=== PATIENT | female | born 2000 | race Caucasian/White ===

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

== ENCOUNTER 2023-08-17 18:29 | Emergency (ER) | payer OTHER, SELFPAY ==
[2023-08-17 18:44] VITALS: BP 126/70; PULSE 93; RESP 16; TEMP 37.5; O2SAT 100
--- NOTE | 2023-08-17 19:34 | ED.GENADULT ---
HPI - General Adult General Chief complaint: Eye Problems Stated complaint: left eye red, swollen,light sensitivity Source: patient Mode of arrival: ambulatory Limitations: no limitations History of Present Illness HPI narrative: Patient presents for evaluation of left eye irritation since yesterday. She reports redness, swelling of the lids earlier, and photosensitivity. She denies any drainage from the left eye or visual disturbance. She wears contacts. She did remove them and has been wearing glasses instead. She is not diabetic. She denies other complaints. Related Data Allergies Allergy/AdvReac Type Severity Reaction Status Date / Time No Known Allergies Allergy Verified 08/17/23 18:36 Review of Systems Review of Systems: CONSTITUTIONAL: Denies fever, chills, or sweats. EYES: Reports redness to the left eye. reports swelling to the left eyelids earlier, now improved. Reports photosensitivity in left eye earlier, now resolved. Denies visual disturbance. Denies pain or pruritus of the eyes. ENT: Denies rhinorrhea, congestion, sore throat, or otalgia. CARDIOVASCULAR: Denies chest pain, palpitations, or edema. RESPIRATORY: Denies cough or dyspnea. GASTROINTESTINAL: Denies abdominal pain, nausea, vomiting, or diarrhea. GENITOURINARY: Denies dysuria or hematuria. SKIN: Denies rash or itching. MUSCULOSKELETAL: Denies back pain, joint pain, or myalgia. NEUROLOGIC: Denies headache, numbness, dizziness, or weakness. PSYCHIATRIC: Denies anxiety or depression. [facility] Past Medical History Medical History Asthma Irregular menses Screening for STD (sexually transmitted disease) Surgical History Surgical History History of placement of ear tubes Family History Family History Grandparent Diabetes mellitus Family history of blood dyscrasia Cerebrovascular accident Acute myocardial infarction Other , 17 Acute myocardial infarction Father High cholesterol Other Hypertension Social History Social History Smoking status: Never smoker Second hand tobacco smoke exposure: No Alcohol intake: never Substance use type: marijuana Exam Narrative: GENERAL: Well-appearing, well-nourished, and in no acute distress. HEAD: Normocephalic, atraumatic. EYES: PERRLA and EOMI. Left conjunctival injection. ENT: Nares clear, no rhinorrhea or epistaxis. Mucous membranes moist. Oropharynx without tonsillar hypertrophy exudate or other lesions. Bilateral TMs pearly aguayo nonbulging NECK: Supple. No adenopathy or masses. No carotid bruits or JVD CHEST: Clear to auscultation. No respiratory distress. No wheezes rales or rhonchi HEART: Regular rate and rhythm. No murmur heard. Normal peripheral pulses. ABDOMEN: Soft, nontender, nondistended, normal active bowel sounds. EXTREMITIES: Normal range of motion. No edema. SKIN: Warm, dry, no rash. NEURO: No focal deficits. Alert and oriented x3. PSYCH: Normal mood and affect. Course Course Emergency Course: This is a 23-year-old female who presented for evaluation of left eye redness and irritation. Exam is consistent with conjunctivitis. Will discharge with ofloxacin. Keep contacts out. Okay to were glasses. Follow-up with eye doctor and primary care provider. Go to the ER for worsening symptoms. Patient in agreement with plan of care. Level of Care: Express Care Visit Vital Signs Vital signs: Vital Signs Temperature 37.5 C 08/17/23 18:44 Pulse Rate 93 08/17/23 18:44 Respiratory Rate 16 08/17/23 18:44 Blood Pressure 126/70 08/17/23 18:44 Pulse Oximetry 100 08/17/23 18:44 Oxygen Delivery Room Air 08/17/23 18:44 Temperature 37.5 C 08/17/23 18:44 Pulse Rate 9
== END 2023-08-17 19:36 | disposition home or self-care (01) ==
PROVIDERS: Emergency Provider Nurse Practitioner
DX: H10.32 Unspecified acute conjunctivitis, left eye (principal); F12.90 Cannabis use, unspecified, uncomplicated; J45.909 Unspecified asthma, uncomplicated
CPT/HCPCS: 99213; G0463